=== PATIENT | male | born 1950 | race Caucasian/White ===

== ENCOUNTER 2020-04-09 12:02 | Emergency (ER) | payer OTHER ==
[~2020-04-09 12:02] MED LIST: ASPIRIN CHEWABL81 MG PO; ASPIRIN EC81 MG PO; ATIVAN2 MG PO; BRILINTA 90 MG90 MG PO; DIOVAN40 MG PO; DOCUSATE SODIU1 EACH PO; FLOMAX0.4 MG PO; IMDUR ER TAB 3030 MG PO; K-DUR TAB 10 M10 MEQ PO; LASIX20 MG PO; LIORESAL TAB 1010 MG PO; LIPITOR TAB 2020 MG PO; LOPRESSOR 25 MG25 MG PO; NITROGLYCERIN0.4 MG SL; NORCO 10-325 T1 EACH PO; NORVASC5 MG PO; PLAVIX 75 MG TA75 MG PO; PROSCAR5 MG PO; SENOKOT-S TABL1 EACH PO; VALSARTAN80 MG PO; VITAMIN D250000 UNIT PO
[2020-04-09 13:00] LABS: HEMOGLOBIN 14.3 gm/dl (14.0-17.5); RED BLOOD COUNT 4.5 M/UL (4.20-5.50); WHITE BLOOD COUNT 5.3 K/UL (4.5-11.0)
[2020-04-09 13:30] LABS: BUN/CREATININE RATIO 21 (0-10)
[2020-04-09] MEDS ORDERED: MECLIZINE HCL25 MG PO (16:42)
== END 2020-04-09 18:29 | disposition home or self-care (01) ==
LOC: ER1 12:02
PROVIDERS: Internal Medicine
DX: H81.10 Benign paroxysmal vertigo, unspecified ear (principal); R93.7 Abnormal findings on diagnostic imaging of other parts of musculoskeletal system; I10 Essential (primary) hypertension; Z86.73 Personal history of transient ischemic attack (TIA), and cerebral infarction without residual deficits; Z88.0 Allergy status to penicillin; Z88.8 Allergy status to other drugs, medicaments and biological substances; Z95.5 Presence of coronary angioplasty implant and graft
CPT/HCPCS: 36415; 70450; 71045; 71250; 80053; 81001; 82550; 82553; 84484; 85025; 93005; 99285

== ENCOUNTER → 2020-05-20 | Outpatient (CLI) | payer OTHER ==
[~2020-05-20] MED LIST changes: +MECLIZINE HCL25 MG PO
== END ==
LOC: CT 07:21
DX: R93.89 Abnormal findings on diagnostic imaging of other specified body structures (principal); N20.0 Calculus of kidney; R91.1 Solitary pulmonary nodule
CPT/HCPCS: 36415; 71260; 82565; Q9967